=== PATIENT | female | born 1945 | race Caucasian/White ===

== ENCOUNTER 2023-11-04 21:07 | Inpatient (IN) | payer MEDICARE ==
[~2023-11-04] VITALS: Ht 162.6 cm; Wt 52.0 kg
[2023-11-04] VITALS (8 sets, daily range): BP systolic 77–96; BP diastolic 39–55
[~2023-11-04 21:07] MED LIST: CIPRO500 MG OR; CLINDAMYCIN150 MG OR; LEVOTHYROXINE125 MCG PO; SYNTHROID125 MCG PO; VIBRAMYCIN100 M2 PO
[2023-11-04] MEDS ORDERED: SODIUM CHLORIDE 0.9% 1,000 ML IV ONE (21:45)
[2023-11-04 22:08] LABS: BASO% 0.2 % (0-3); EOS% 0.1 % (0-8); IMMATURE GRANULOCYTES 0.8 % (0.0-5.0); LYMPH% 5.9 % (15-41); MEAN CELL VOLUME 97.8 fL CALC (80.0-100.0); MEAN CORPUSCULAR HGB 33.2 pG CALC (26.0-32.0); MONO% 7.9 % (2-13); NEUT# 10.19 thou/uL (2.00-7.15); NEUT% 85.1 % (42-76); RED BLOOD COUNT 3.16 mill/uL (4.20-5.60); RED CELL DISTRI WIDTH 13.7 % (11.5-15.5)
[2023-11-04 22:12] LABS: HEMATOCRIT 30.9 % (37.0-47.0); HEMOGLOBIN 10.5 g/dl (12.0-16.0)
[2023-11-04 22:18] LABS: BILIRUBIN, TOTAL 0.5 mg/dL (0.02-1.3); CREATININE 0.5 mg/dL (0.5-1.0); POTASSIUM 3.6 mmol/l (3.5-5.1)
[2023-11-04 22:21] LABS: ALBUMIN 3.7 g/dL (3.2-5.0)
[2023-11-05] VITALS (16 sets, daily range): BP systolic 66–125; BP diastolic 41–80
[2023-11-05 00:49] LABS: URINE BILIRUBIN - DIPSTICK Negative (NEGATIVE); URINE BLOOD DIPSTICK Negative (NEGATIVE); URINE GLUCOSE - DIPSTICK Negative (NEGATIVE); URINE KETONE Negative (NEGATIVE); URINE LEUK ESTERASE Negative (NEGATIVE); URINE NITRITE - DIPSTICK Negative (Negative); URINE PROTEIN - DIPSTICK Negative (NEG-TRACE); URINE SPECIFIC GRAVITY 1.015; URINE UROBILINOGEN - DIPSTICK 0.2 E.U./dL (0.2)
[2023-11-05 00:54] LABS: URINE COLOR Yellow
[2023-11-05] MEDS ORDERED: ONDANSETRON 4 MG/TAB ODT PO PRN (01:15)
[2023-11-05] MEDS ORDERED: MAGNESIUM HYDROXIDE 30 ML UDC PO PRN (01:15)
[2023-11-05] MEDS ORDERED: IBUPROFEN 800 MG/TAB PO PRN (01:15)
[2023-11-05] MEDS ORDERED: FAMOTIDINE 10MG/ML 2ML SDV IV PRN (01:15)
[2023-11-05] MEDS ORDERED: SODIUM CHLORIDE 0.9% 1,000 ML IV PRN (01:15)
[2023-11-05] MEDS ORDERED: ONDANSETRON HCl 4 MG/2 ML SDV IV PRN (01:15)
[2023-11-05] MEDS ORDERED: ALUM & MAG HYDROX-SIMETHICONE 30 ML PO PRN (01:15)
[2023-11-05 08:52] LABS: ALBUMIN 3.4 g/dL (3.2-5.0); BILIRUBIN, TOTAL 0.3 mg/dL (0.02-1.3); CREATININE 0.4 mg/dL (0.5-1.0); POTASSIUM 3.6 mmol/l (3.5-5.1); TOTAL PROTEIN 5.9 g/dL (6.3-8.2)
[2023-11-05] MEDS ORDERED: LEVOTHYROXINE SODIUM 125 MCG/TAB PO SCH (09:00)
[2023-11-05 09:02] LABS: HEMATOCRIT 28.2 % (37.0-47.0); HEMOGLOBIN 9.5 g/dl (12.0-16.0); MEAN CELL VOLUME 98.9 fL CALC (80.0-100.0); MEAN CORPUSCULAR HGB 33.3 pG CALC (26.0-32.0); MEAN CORPUSCULAR HGB CONC 33.7 g/dL CAL (32.0-36.0); RED BLOOD COUNT 2.85 mill/uL (4.20-5.60); RED CELL DISTRI WIDTH 13.9 % (11.5-15.5)
[2023-11-05] MEDS ORDERED: LEVOTHYROXIN25 MC1 PO (09:20)
[2023-11-05] MEDS ORDERED: ASPIRIN 81 LOW81 MG PO (10:05)
[2023-11-05] MEDS ORDERED: CRESTOR5 MG PO (10:05)
[2023-11-05] MEDS ORDERED: PROBIOTI3 (10:20)
[2023-11-05] MEDS ORDERED: OMEGA 31000 MG PO (10:21)
[2023-11-05] MEDS ORDERED: MULTIVITAMIN1 TA1 (10:21)
[2023-11-05] MEDS ORDERED: Levofloxacin 750 mg Premix 150 ML IV SCH (17:30)
[2023-11-05] MEDS ORDERED: VANCOMYCIN HCL 1 GM in SODIUM CHLORIDE 0.9% 250 ML IV ONE (19:30)
[2023-11-06] VITALS (11 sets, daily range): BP systolic 96–125; BP diastolic 56–80
[2023-11-06 05:17] LABS: BASO% 0.6 % (0-3); EOS% 0.9 % (0-8); HEMATOCRIT 27.1 % (37.0-47.0); HEMOGLOBIN 9.2 g/dl (12.0-16.0); IMMATURE GRANULOCYTES 0.2 % (0.0-5.0); LYMPH% 21.4 % (15-41); MEAN CELL VOLUME 99.3 fL CALC (80.0-100.0); MEAN CORPUSCULAR HGB 33.7 pG CALC (26.0-32.0); MEAN CORPUSCULAR HGB CONC 33.9 g/dL CAL (32.0-36.0); MONO% 8.7 % (2-13); NEUT# 4.52 thou/uL (2.00-7.15); NEUT% 68.2 % (42-76); RED BLOOD COUNT 2.73 mill/uL (4.20-5.60)
[2023-11-06 05:36] LABS: BILIRUBIN, TOTAL 0.4 mg/dL (0.02-1.3); CREATININE 0.4 mg/dL (0.5-1.0); MAGNESIUM 1.5 mg/dL (1.6-2.3); POTASSIUM 3.4 mmol/l (3.5-5.1); TOTAL PROTEIN 5.3 g/dL (6.3-8.2)
[2023-11-06] MEDS ORDERED: MAGNESIUM SULFATE HEPTAHYDRATE 50 ML IV SCH (09:00)
[2023-11-06] MEDS ORDERED: LEVOTHYROXINE SODIUM 25 MCG/TAB PO SCH (09:00)
[2023-11-06] MEDS ORDERED: POTASSIUM CHLORIDE 20 MEQ/TAB PO SCH (09:00)
[2023-11-06 09:56] LABS: AMYLASE 39 u/l (30-110); LIPASE 40 u/l (23-300)
[2023-11-06] MEDS ORDERED: METOCLOPRAMIDE HCL 10 MG/TAB PO SCH (10:00)
[2023-11-06] MEDS ORDERED: PANTOPRAZOLE SODIUM Sesquihydr 40 MG/TAB PO SCH (10:00)
[2023-11-06] MEDS ORDERED: DIATRIZOATE MEGLUMINE & SODIUM 30 ML/BTL BTL PO SCH (10:30)
[2023-11-07 04:27] VITALS: BP 106/63
[2023-11-07 04:52] VITALS: BP 106/63
[2023-11-07 05:32] LABS: BASO% 0.5 % (0-3); EOS% 1.3 % (0-8); HEMATOCRIT 27.6 % (37.0-47.0); HEMOGLOBIN 9.4 g/dl (12.0-16.0); IMMATURE GRANULOCYTES 0.2 % (0.0-5.0); LYMPH% 25.1 % (15-41); MEAN CELL VOLUME 98.9 fL CALC (80.0-100.0); MEAN CORPUSCULAR HGB 33.7 pG CALC (26.0-32.0); MEAN CORPUSCULAR HGB CONC 34.1 g/dL CAL (32.0-36.0); MONO% 9.8 % (2-13); NEUT# 3.46 thou/uL (2.00-7.15); NEUT% 63.1 % (42-76); RED BLOOD COUNT 2.79 mill/uL (4.20-5.60); RED CELL DISTRI WIDTH 13.7 % (11.5-15.5)
[2023-11-07 05:49] LABS: ALBUMIN 3.1 g/dL (3.2-5.0); BILIRUBIN, TOTAL 0.5 mg/dL (0.02-1.3); CREATININE 0.5 mg/dL (0.5-1.0); MAGNESIUM 1.7 mg/dL (1.6-2.3); POTASSIUM 3.7 mmol/l (3.5-5.1); TOTAL PROTEIN 5.5 g/dL (6.3-8.2)
[2023-11-07 07:22] VITALS: BP 106/65
[2023-11-07] MEDS ORDERED: PANTOPRAZOLE SO40 M1 PO (09:35)
[2023-11-07] MEDS ORDERED: METOCLOPRAMIDE10 MG PO (09:35)
== END 2023-11-07 12:50 | disposition home or self-care (01) | DRG 315 ==
LOC: ED 21:07 → ED-I 22:10 → ED 22:10 → ED-I 11-05 00:50 → ED 11-05 01:26 → MS2 11-05 01:27
PROVIDERS: Internal Medicine; Nurse Practitioner Family; ADMIT Internal Medicine; ATTEND Internal Medicine
DX: I95.9 Hypotension, unspecified (principal); E87.1 Hypo-osmolality and hyponatremia; E83.42 Hypomagnesemia; R14.0 Abdominal distension (gaseous); R10.13 Epigastric pain; R14.2 Eructation; E78.5 Hyperlipidemia, unspecified; E03.9 Hypothyroidism, unspecified; R79.89 Other specified abnormal findings of blood chemistry; Z98.890 Other specified postprocedural states
CPT/HCPCS: J3475